=== PATIENT | female | born 1990 | race Caucasian/White ===

== ENCOUNTER 2017-02-26 14:29 | Observation (INO) | payer OTHER ==
[2017-02-26 15:37] LABS: RED BLOOD COUNT 4.13 M/UL (4.00-5.10)
[2017-02-26 15:52] LABS: BUN/CREATININE RATIO 7 (0-10)
[2017-02-27 16:01] LABS: URINE TOTAL PROTEIN 6 mg/dl
== END 2017-02-27 16:15 | disposition home or self-care (01) ==
LOC: GENOP 14:29 → OB 14:49
PROVIDERS: Obstetrics & Gynecology; ADMIT Obstetrics & Gynecology
DX: O13.3 Gestational [pregnancy-induced] hypertension without significant proteinuria, third trimester (principal); O9A.113 Malignant neoplasm complicating pregnancy, third trimester; C53.9 Malignant neoplasm of cervix uteri, unspecified; O99.513 Diseases of the respiratory system complicating pregnancy, third trimester; J45.909 Unspecified asthma, uncomplicated; Z3A.35 35 weeks gestation of pregnancy; Z88.1 Allergy status to other antibiotic agents
CPT/HCPCS: 59025; 80053; 81001; 84156; 85025; G0378

== ENCOUNTER 2017-03-17 05:26 | Inpatient (IN) | payer OTHER ==
[~2017-03-17] VITALS: Ht 167.6 cm; Wt 108.9 kg
[2017-03-18 03:06] LABS: HEMOGLOBIN 10.6 gm/dl (12.3-15.3)
[2017-03-19] MEDS ORDERED: COLACE 100MG C100 MG PO (10:33)
== END 2017-03-19 09:25 | disposition home or self-care (01) | DRG 766 ==
LOC: OB 05:26
PROVIDERS: ADMIT Obstetrics & Gynecology
PROC: 3E0234Z Introduction of Serum, Toxoid and Vaccine into Muscle, Percutaneous Approach (ICD-10-PCS; 2017-03-17)
PROC: 10D00Z1 Extraction of Products of Conception, Low, Open Approach (ICD-10-PCS; principal; 2017-03-17 09:23)
DX: O13.4 Gestational [pregnancy-induced] hypertension without significant proteinuria, complicating childbirth (principal); O34.219 Maternal care for unspecified type scar from previous cesarean delivery; Z3A.38 38 weeks gestation of pregnancy; Z37.0 Single live birth; Z23 Encounter for immunization
CPT/HCPCS: 36415; 81001; 82800; 85014; 85018; 85025; 90715; C9113; J1580; J2250; J2274; J2370; J2405; J2550; J2590; J2765; J3010; J3430; J7050; J7120

== ENCOUNTER 2021-03-05 22:25 | Emergency (ER) | payer OTHER ==
[~2021-03-05 22:25] MED LIST: AUGMENTIN 875-1 EACH PO; CLARITIN 10MG T10 MG PO; COLACE 100MG C100 MG PO; FLEXERIL 10 MG10 MG PO; IBUPROFEN600 MG PO; LORTAB 5-325 M1 EACH PO; LOTRIMIN CREAM15 GM TP; NAPROSYN EC 50500 MG PO; NAPROSYN500 MG PO; ZITHROMAX250 MG PO
[2021-03-05] MEDS ORDERED: IBUPROFEN600 MG PO (22:43)
[2021-03-05] MEDS ORDERED: CLEOCIN HCL300 MG PO (22:43)
[2021-03-05] MEDS ORDERED: Viscous lidocaine2% TOP (22:43)
== END 2021-03-05 23:00 | disposition home or self-care (01) ==
LOC: ER1 22:25
DX: K04.7 Periapical abscess without sinus (principal); F17.210 Nicotine dependence, cigarettes, uncomplicated; Z79.899 Other long term (current) drug therapy; Z88.1 Allergy status to other antibiotic agents
CPT/HCPCS: 99282